=== PATIENT | female | born 1985 | race Caucasian/White ===

== ENCOUNTER 2023-02-24 17:42 | Outpatient (CLI) | payer BC, SELFPAY ==
[2023-02-24 17:46] LABS: Influenza A, PCR Not Detected (NotDetected); Influenza B, PCR Not Detected (NotDetected)
[2023-02-24 18:33] LABS: Basophils # 0.1 K/mm3 (0-0.2); Basophils % 0.7 % (0.1-2.0); Eosinophils # 0.4 K/mm3 (0.0-0.4); Eosinophils % 4.9 % (0.1-12.0); Hematocrit 41.5 % (37.0-47.0); Lymphocytes # 2.1 K/mm3 (0.7-4.5); Lymphocytes % 25.7 % (10-50); Mean Corpuscular HGB Conc 33.8 g/dL (31.8-35.4); Mean Corpuscular Hemoglobin 29.1 pg (27.0-31.2); Mean Platelet Volume 8.6 fl (7.4-10.4); Monocytes # 0.6 K/mm3 (0.1-1.0); Monocytes % 7.8 % (1.7-9.3); Neutrophils # 4.9 K/mm3 (1.8-7.8); Neutrophils % 60.8 % (37.0-80.0); Platelet Count 248 K/mm3 (142-424); Red Blood Count 4.83 M/mm3 (4.20-5.40); Red Cell Distribution Width 13.6 % (11.5-17.5)
[2023-02-24 18:37] LABS: Alanine Aminotransferase 28 U/L (12-78); Albumin Level 3.7 g/dl (3.5-5.0); Albumin/Globulin Ratio 1.2 (1.1-1.8); Alkaline Phosphatase 93 U/L (38-126); Anion Gap 7.6 mEq/L (5-15); Aspartate Amino Transferase 29 U/L (14-36); Bilirubin,Total 0.3 mg/dl (0.2-1.3); Blood Urea Nitrogen 11 mg/dl (7-17); Calcium 8.5 mg/dl (8.4-10.2); Carbon Dioxide 28 mmol/L (22.0-30.0); Chloride 105 mmol/L (98-107); Estimated Glomerular Filt Rate 111 ml/min (>60); GFR (African American) 135 ML/MIN (>60); Glucose 97 mg/dl (74-100); Potassium 3.6 mmoL/L (3.5-5.1); Sodium 137 mmol/L (136-145); Total Protein,Serum 6.7 g/dl (6.3-8.2)
[2023-02-24 19:17] LABS: Coronavirus 19, PCR Detected (NotDetected)
== END 2023-02-24 23:59 ==
LOC: LAB.DROPOF 17:43
PROVIDERS: PCP Nurse Practitioner; Visit Provider Nurse Practitioner
DX: J06.9 Acute upper respiratory infection, unspecified (principal); U07.1 COVID-19
CPT/HCPCS: 80053; 85025; 87636

== ENCOUNTER 2023-07-01 10:20 | Outpatient (CLI) | payer BC, SELFPAY ==
[2023-07-01 20:11] LABS: Creatinine,Urine Random 17 mg/dL (Not Estab.)
[2023-07-01 20:19] LABS: Microalbumin < 6.000 mg/L (0-16.7)
== END 2023-07-01 23:59 | disposition home or self-care (01) ==
LOC: LAB.DROPOF 07-03 10:22
PROVIDERS: PCP Nurse Practitioner; Visit Provider Nurse Practitioner
DX: I10 Essential (primary) hypertension (principal); E78.5 Hyperlipidemia, unspecified
CPT/HCPCS: 82043; 82570

== ENCOUNTER 2023-07-11 08:51 | Outpatient (CLI) | payer BC, SELFPAY ==
[2023-07-01 20:11] LABS: Creatinine,Urine Random 17 mg/dL (Not Estab.)
[2023-07-01 20:19] LABS: Microalbumin < 6.000 mg/L (0-16.7)
[2023-07-11 09:07] LABS: Basophils # 0.1 K/mm3 (0-0.2); Basophils % 0.8 % (0.1-2.0); Eosinophils # 0.2 K/mm3 (0.0-0.4); Eosinophils % 2.2 % (0.1-12.0); Hematocrit 43.1 % (37.0-47.0); Hemoglobin 13.9 g/dL (12.2-16.2); Lymphocytes # 2.1 K/mm3 (0.7-4.5); Lymphocytes % 21.5 % (10-50); Mean Corpuscular HGB Conc 32.1 g/dL (31.8-35.4); Mean Corpuscular Hemoglobin 28.4 pg (27.0-31.2); Mean Corpuscular Volume 88.6 fl (81-99); Mean Platelet Volume 8.2 fl (7.4-10.4); Monocytes # 0.4 K/mm3 (0.1-1.0); Monocytes % 4.6 % (1.7-9.3); Neutrophils # 6.8 K/mm3 (1.8-7.8); Neutrophils % 70.8 % (37.0-80.0); Platelet Count 267 K/mm3 (142-424); Red Blood Count 4.87 M/mm3 (4.20-5.40); White Blood Count 9.5 K/mm3 (4.8-10.8)
[2023-07-11 09:40] LABS: Hemoglobin A1C 5.5 % (4.0-6.0)
[2023-07-11 10:04] LABS: Alanine Aminotransferase 26 U/L (12-78); Albumin Level 3.9 g/dl (3.5-5.0); Albumin/Globulin Ratio 1.3 (1.1-1.8); Alkaline Phosphatase 91 U/L (38-126); Aspartate Amino Transferase 25 U/L (14-36); Bilirubin,Total 0.8 mg/dl (0.2-1.3); Blood Urea Nitrogen 16 mg/dl (7-17); Calcium 9.2 mg/dl (8.4-10.2); Carbon Dioxide 28 mmol/L (22.0-30.0); Chloride 102 mmol/L (98-107); Chol/HDL Ratio 4.2 (1-3.5); Cholesterol 228 mg/dl (140-200); Estimated Glomerular Filt Rate 93 ml/min (>60); GFR (African American) 112 ML/MIN (>60); Globulin 2.9 g/dL (1.3-3.2); Glucose 94 mg/dl (74-100); HDL Cholesterol 54 mg/dl (40-60); Sodium 138 mmol/L (136-145); Total Protein,Serum 6.8 g/dl (6.3-8.2); Triglycerides 172 mg/dl (30-150); VLDL Cholesterol 34 mg/dL (0-40)
[2023-07-11 10:16] LABS: Direct LDL Cholesterol 131.06 mg/dL (100-129)
[2023-07-11 10:23] LABS: 25-OH Vitamin D, Total 27.8 ng/mL (30-100)
[2023-07-11 10:35] LABS: Thyroid Stimulating Hormone 3.82 uIU/mL (0.465-4.68)
[2023-07-11 10:54] LABS: Vitamin B12 510 pg/mL (239-931)
== END 2023-07-11 23:59 | disposition home or self-care (01) ==
LOC: LAB 08:53
PROVIDERS: PCP Nurse Practitioner; Visit Provider Nurse Practitioner
DX: I10 Essential (primary) hypertension (principal); E78.5 Hyperlipidemia, unspecified; E55.9 Vitamin D deficiency, unspecified
CPT/HCPCS: 36415; 80050; 80053; 80061; 82043; 82306; 82570; 82607; 83036; 84443; 85025

== ENCOUNTER 2023-07-24 07:42 | Outpatient (CLI) | payer BC, SELFPAY ==
--- NOTE | 2023-07-24 07:43 | MM_ITS ---
PROCEDURE INFORMATION: Exam: Bilateral Screening 3D Mammography Exam date and time: 07/24/2023 7:50 AM Age: 38 years old Clinical indication: Screening examination TECHNIQUE: Imaging protocol: Bilateral Screening tomosynthesis and 2D mammography including computer-aided detection (CAD) when performed. COMPARISON: No relevant prior studies available. FINDINGS: MAMMOGRAPHY: Breast composition: There are scattered areas of fibroglandular density. Mass: Questionable 0.5 cm mass in the anterior left upper inner quadrant Architectural distortion: None. Calcifications: No suspicious calcifications. Asymmetric density: None. Skin thickening: None. Axillary adenopathy: None. IMPRESSION: Patient to be recalled for spot compression views of the left breast in the CC and MLO projections, a full 90 degree lateral view, and possible left breast ultrasound for further evaluation of a left breast mass. ASSESSMENT: BI-RADS Category 0: Incomplete- Need Additional Imaging Evaluation and/or Prior Mammograms for Comparison.
== END 2023-07-24 23:59 | disposition home or self-care (01) ==
LOC: RAD 07:43
PROVIDERS: PCP Nurse Practitioner; Visit Provider Nurse Practitioner
DX: Z12.31 Encounter for screening mammogram for malignant neoplasm of breast (principal)
CPT/HCPCS: 77063; 77067

== ENCOUNTER 2023-08-28 09:43 | Outpatient (CLI) | payer BC, SELFPAY ==
--- NOTE | 2023-08-28 09:44 | US_ITS ---
PROCEDURE INFORMATION: Exam: US Left Breast, Complete MG Left Diagnostic Breast Tomosynthesis Exam date and time: 08/28/2023 9:32 AM Age: 38 years old Clinical indication: Patient recalled on the basis of a screening mammogram for further evaluation; Left breast; mass TECHNIQUE: Imaging protocol: Complete ultrasound of all four quadrants of the left breast and the retroareolar regions, including ultrasound of the axilla when performed. Left Diagnostic tomosynthesis and 2D mammography including computer-aided detection (CAD) when performed. Unilateral or bilateral exam. COMPARISON: MG MM DIG SCREENING MAMM BI W/CAD 07/24/2023 7:50 AM FINDINGS: MAMMOGRAPHY: Breast composition: There are scattered areas of fibroglandular density (based on the most recent screening mammogram report). Breast mammogram findings: Digital diagnostic spot compression views of the left breast and 90 degree lateral view of the left breast demonstrate a persistent 0.5 cm ovoid mass ULTRASOUND: Breast ultrasound findings: Sonographic images of the left 11 o'clock axis 3 cm from the nipple demonstrates a 0.7 cm cyst corresponding to the mass on mammography. No other solid or cystic masses are noted the remainder of the left breast. No architectural distortion or acoustic shadowing there is no axillary adenopathy. IMPRESSION: Mass on screening mammography corresponds to underlying cystic change sonographically. There is no mammographic evidence of malignancy.Annual bilateral mammographic screening is recommended unless otherwise clinically indicated. ASSESSMENT: BI-RADS Category 2: Benign.
== END 2023-08-28 23:59 | disposition home or self-care (01) ==
LOC: RAD 09:44
PROVIDERS: PCP Nurse Practitioner; Visit Provider Nurse Practitioner
DX: D48.62 Neoplasm of uncertain behavior of left breast (principal)
CPT/HCPCS: 76641; 77061; 77065; G0279

== ENCOUNTER 2023-11-03 14:34 | Outpatient (CLI) | payer BC, SELFPAY | END 2023-11-03 23:59 | disposition home or self-care (01) | LOC: LAB.DROPOF 11-04 12:03 | PROVIDERS: PCP Family Medicine; Visit Provider Family Medicine | DX: J02.9 Acute pharyngitis, unspecified (principal); R05.9 Cough, unspecified | CPT/HCPCS: 87635 ==

== ENCOUNTER 2024-04-27 11:26 | Outpatient (CLI) | payer BC, SELFPAY ==
[2024-04-27 19:00] LABS: Creatinine,Urine Random 16 mg/dL (Not Estab.)
[2024-04-27 19:01] LABS: Microalbumin < 6.000 mg/L (0-16.7)
== END 2024-04-27 23:59 | disposition home or self-care (01) ==
LOC: LAB.DROPOF 04-28 11:27
PROVIDERS: PCP Nurse Practitioner; Visit Provider Nurse Practitioner
DX: I10 Essential (primary) hypertension (principal); E78.5 Hyperlipidemia, unspecified; E66.01 Morbid (severe) obesity due to excess calories; Z68.41 Body mass index [BMI] 40.0-44.9, adult
CPT/HCPCS: 82043; 82570

== ENCOUNTER 2024-04-30 09:47 | Outpatient (CLI) | payer BC, SELFPAY ==
[2024-04-30 10:26] LABS: Basophils % 0.5 % (0.1-2.0); Eosinophils # 0.2 K/mm3 (0.0-0.4); Eosinophils % 1.8 % (0.1-12.0); Hemoglobin 13.2 g/dL (12.2-16.2); Lymphocytes # 2.1 K/mm3 (0.7-4.5); Lymphocytes % 23.7 % (10-50); Mean Corpuscular HGB Conc 32.2 g/dL (31.8-35.4); Mean Corpuscular Hemoglobin 28.2 pg (27.0-31.2); Mean Corpuscular Volume 87.6 fl (81-99); Mean Platelet Volume 10.3 fl (7.4-10.4); Monocytes # 0.6 K/mm3 (0.1-1.0); Monocytes % 6.5 % (1.7-9.3); Neutrophils # 5.9 K/mm3 (1.8-7.8); Neutrophils % 67.3 % (37.0-80.0); Platelet Count 283 K/mm3 (142-424); Red Blood Count 4.68 M/mm3 (4.20-5.40); Red Cell Distribution Width 12.7 % (11.5-17.5); White Blood Count 8.7 K/mm3 (4.8-10.8)
[2024-04-30 11:11] LABS: Alanine Aminotransferase 19 U/L (12-78); Albumin Level 4.1 g/dl (3.5-5.0); Albumin/Globulin Ratio 1.8 (1.1-1.8); Alkaline Phosphatase 68 U/L (38-126); Anion Gap 9.5 mEq/L (5-15); Aspartate Amino Transferase 23 U/L (14-36); Bilirubin,Total 0.6 mg/dl (0.2-1.3); Blood Urea Nitrogen 18 mg/dl (7-17); Carbon Dioxide 29 mmol/L (22.0-30.0); Chloride 104 mmol/L (98-107); Cholesterol 208 mg/dl (140-200); Estimated Glomerular Filt Rate 110 ml/min (>60); GFR (African American) 133 ML/MIN (>60); Globulin 2.3 g/dL (1.3-3.2); Glucose 88 mg/dl (74-100); HDL Cholesterol 42 mg/dl (40-60); Potassium 4.5 mmoL/L (3.5-5.1); Sodium 138 mmol/L (136-145); Total Protein,Serum 6.4 g/dl (6.3-8.2); Triglycerides 79 mg/dl (30-150); VLDL Cholesterol 16 mg/dL (0-40)
[2024-04-30 11:22] LABS: Direct LDL Cholesterol 118.96 mg/dL (100-129)
[2024-04-30 11:27] LABS: 25-OH Vitamin D, Total 81.6 ng/mL (30-100)
[2024-04-30 11:42] LABS: Thyroid Stimulating Hormone 2.15 uIU/mL (0.465-4.68)
[2024-04-30 12:01] LABS: Vitamin B12 725 pg/mL (239-931)
[2024-04-30 13:33] LABS: Hemoglobin A1C 5.2 % (4.0-6.0)
== END 2024-04-30 23:59 | disposition home or self-care (01) ==
LOC: LAB 09:48
PROVIDERS: PCP Nurse Practitioner; Visit Provider Nurse Practitioner
DX: I10 Essential (primary) hypertension (principal); E78.5 Hyperlipidemia, unspecified; E66.01 Morbid (severe) obesity due to excess calories; Z68.41 Body mass index [BMI] 40.0-44.9, adult
CPT/HCPCS: 36415; 80053; 80061; 82306; 82607; 83036; 84443; 85025

== ENCOUNTER 2024-05-27 07:46 | Outpatient (CLI) | payer BC, SELFPAY ==
[2024-05-28 04:26] LABS: Estradiol 48.4 pg/mL (.); FSH 6.2 mIU/mL (.); LH 3.6 mIU/mL (.); Progesterone 0.2 ng/mL (.)
== END 2024-05-27 23:59 | disposition home or self-care (01) ==
LOC: LAB 07:47
PROVIDERS: PCP Nurse Practitioner; Visit Provider Obstetrics & Gynecology
DX: R68.82 Decreased libido (principal)
CPT/HCPCS: 36415; 82670; 83001; 83002; 84144

== ENCOUNTER 2024-09-09 08:15 | Outpatient (CLI) | payer BC, SELFPAY ==
--- OUTSIDE RECORDS SUMMARY | 2023-06-20 08:55 | XMS_ITS | Encounter Summary ---
Author Organization [place] [address] Care Team Providers Care Data Abstractor Name Role Phone Mercedes Garcia DO Primary Care Provider [phone] Encounter Details Date Type Department Care Team (Latest Contact Info) Description 06/20/2023 8:55 AM EDT Hospital Encounter [facility] [address] [place] [address] Left without seen Social History Tobacco Use Types Packs/Day Years Used Date Smoking Tobacco: Former Cigarettes 0.3 20 1 03/30/1994 - 01/27/2015 Smokeless Tobacco: Never Alcohol Use Standard Drinks/Week Comments Yes 0 (1 standard drink = 0.6 oz pur e alcohol) rare; 2x/yr PHQ-2 Answer Date Recorded PHQ-2 Total Score 0 06/10/2022 Sexually Active Control Partners Comments Yes Condom, OCP Male Comments No Sex and Gender Information Value Date Recorded Sex Assigned at Not on file Legal Sex Female 7:23 PM EDT Gender Identity Not on file Sexual Orientation Not on file documented as of this encounter Functional Status * Is the person deaf or does he/she have serious difficulty hearing? Answer Date of Assessment Author No 06/10/2022 7:33 AM EDT Anuj Ayala MA * Is the person blind or does he/she have serious difficulty seeing even when wearing glasses? Answer Date of Assessment Author No 06/10/2022 7:33 AM EDT Anuj Ayala MA * Does this person have serious difficulty walking or climbing stairs? Answer Date of Assessment Author No 06/10/2022 7:33 AM EDT Anuj Ayala MA * Does this person have difficulty dressing or bathing? Answer Date of Assessment Author No 06/10/2022 7:33 AM EDT Anuj Ayala MA * Because of a physical, mental or emotional condition, does this person have difficulty doing errands alone such as visiting a doctor's office or shopping? Answer Date of Assessment Author No 06/10/2022 7:33 AM EDT Anuj Ayala MA documented as of this encounter Mental Status * Because of a physical, mental or emotional condition, does this person have serious difficulty concentrating, remembering or making decisions? Answer Entry Date Author No 06/10/2022 7:33 AM EDT Anuj Ayala MA documented in this encounter Plan of Treatment Not on file documented as of this encounter Goals Goal Patient Goal Type Associated Problems Recent Progress Patient-Stated? Author Blood Pressure < 140/90 Blood Pressure 128/82(2022 7:33 AM EDT) No Afshan Carrillo RMA Eat better, exercise, reach an ideal body weight General No Karen Morelos LPN Stay Tobacco Free Lifestyle No Karen Morelos LPN documented as of this encounter Visit Diagnoses Not on filedocumented in this encounter Care Teams Data Abstractor Relationship Specialty Start Date End Date Mercedes Garcia DO [address] [place] [address] PCP - General Family Medicine 10/28/22 documented as of this encounter
--- OUTSIDE RECORDS SUMMARY | 2024-09-09 08:18 | XMS_ITS | Clinical Summary ---
Author Organization [facility] Address [address] [place] [address] Care Team Providers Care Induction Machine Setter Name Role Phone Unavailable Primary Care Provider Unavailabl e Allergies Active Allergy Reactions Criticality Noted Date Comments Lisinopril Other (See Comments) 02/06/2021 Hair loss Nickel 12/07/2009 Sulfa (Sulfonamide Antibiotics) 12/07/2009 Medications atorvastatin (LIPITOR) 80 mg Tablet Take 80 mg by mouth daily. 10/24/2022 Active fluticasone propionate (FLONASE) 50 mcg/actuation nasal spray [place] into nose daily as needed. Active hydroCHLOROthia zide (HYDRODIURIL) 25 mg tablet Take 25 mg by mouth daily. 10/24/2022 Active hyoscyamine (LEVSIN/SL) 0.125 mg SL tablet DISSOLVE ONE TABLET UNDER THE TONGUE EVERY 4 HOURS NEEDED FOR CRAMPING 06/10/2022 Active Levocetirizine (Xyzal) 5 mg Tablet Take 1 Tablet by mouth nightly. 05/31/2022 Active losartan (COZAAR) 25 mg Tablet Take 25 mg by mouth daily. 10/24/2022 Active Active Problems Problem Noted Date Diagnosed Date Irritable bowel syndrome with constipation 06/1011/14/2022 Overview (11/14/2022): Stable on prn hyoscyamine Obesity, Class III, BMI 40-49.9 (morbid obesity) ([facility]) 04/25/2016 11/14/2022 Essential hypertension 04/09/2016 Allergic rhinitis 12/11/2009 11/14/2022 Overview (11/14/2022): Prior allergy testing, + oak; no prior allergy shots Saw ENT/Dr Mckoy Mixed hyperlipidemia 12/11/2009 11/14/2022 Immunizations Immunization Administration Dates Next Due Tdap 02/06/2021,12/11/2009 Social History Tobacco Use Types Packs/Day Years Used Date Smoking Tobacco: Never Assessed Comments Unknown Sex and Gender Information Value Date Recorded Sex Assigned at Not on file Legal Sex Female 8:03 PM EDT Gender Identity Not on file Sexual Orientation Not on file Plan of Treatment Not on file Insurance
--- OUTSIDE RECORDS SUMMARY | 2024-09-09 08:18 | XMS_ITS | Clinical Summary ---
Author Organization [facility] [place] [facility] Address [address] [place] [address] Phone Care Team Providers Care Guidance Consultant Name Role Phone Mercedes Garcia Primary Care Provider [phone] Allergies Active Allergy Reactions Criticality Noted Date Comments Lisinopril Other (See Comments) 02/06/2021 Hair loss Nickel 12/07/2009 Sulfa (Sulfonamide Antibiotics) 12/07/2009 Medications fluticasone (FLONASE) 50 mcg/actuation Nasl [place], SuspensionIndicatio ns:Essential hypertension by Nasal route daily as needed for Allergies. Active budesonide (PULMICORT) 0.5 mg/2 mL Inhl Suspension for NebulizationIndicat ions:Sinus pressure Use in sinus rinse as directed 2 times a day. Dispense #60 2ml Vials 60 mL 3 Active levocetirizine (XYZAL) 5 mg Oral TabletIndications:D ysfunction of both eustachian tubes,Sinus pressure Take one pill nightly 30 Tablet 5 3 Active losartan (COZAAR) 25 mg Oral TabletIndications:E ssential hypertension Take 1 Tablet by mouth daily. 90 Tablet 3 3 Active hyoscyamine (LEVSIN/SL) 0.125 mg SL Tablet, SublingualIndicatio ns:Irritable bowel syndrome with constipation DISSOLVE ONE TABLET UNDER THE TONGUE EVERY 4 HOURS NEEDED FOR CRAMPING 60 Tablet 3 3 Active hydroCHLOROthiazide 25 mg Oral TabletIndications:E ssential hypertension Take 1 Tablet by mouth daily. 30 Tablet 3 4 Active atorvastatin (LIPITOR) 80 mg Oral TabletIndications:M ixed hyperlipidemia Take 1 Tablet by mouth daily. 30 Tablet 3 4 Active Active Problems Problem Noted Date Diagnosed Date Irritable bowel syndrome with constipation 06/10 Overview (06/10/2022): Stable on prn hyoscyamine Obesity, Class III, BMI 40-49.9 (morbid obesity) 04/25/2016 Essential hypertension 04/09/2016 Allergic rhinitis 12/11/2009 Overview (06/10/2022): Prior allergy testing, + oak; no prior allergy shots Saw ENT/Dr Mckoy Mixed hyperlipidemia 12/11/2009 Immunizations Immunization Administration Dates Next Due Tdap 02/06/2021,12/11/2009 Surgical History Surgery Date Site/Laterality Comments TONSILLECTOMY AND ADENOIDECTOMY 02/16/1993 - 02/15/1994 Medical History Medical History Date Comments Allergic rhinitis Hypertension Mixed hyperlipidemia Family History Medical History Relation Name Comments High Cholesterol Brother Joshua Substance Abuse Brother Joshua Other Maternal Grandmother bleedin g ulcer Lung Cancer Maternal Uncle 1 COPD Maternal Uncle 2 Depression Mother Gillian Heart Disease Mother Gillian High Cholesterol Mother Gillian Hypertension Mother Gillian Skin Cancer Mother Gillian Thyroid Disease Mother Gillian Diabetes Neg Hx Seizures Neg Hx Stroke Neg Hx Relation Name Status Comments Brothlenard Lewis Alive Father Other the sperm dono r Maternal Grandfather Maternal Grandmother Maternal Uncle 1 Maternal Uncle 2 Mother Gillian Alive Social History Tobacco Use Types Packs/Day Years Used Date Smoking Tobacco: Former Cigarettes 0.3 20 1 03/30/1994 - 01/27/2015 Smokeless Tobacco: Never Tobacco Cessation:Counseling Given: Not Answered Alcohol Use Standard Drinks/Week Comments Yes 0 [...] on file Sexual Orientation Not on file Obstetrics History Last Filed Vital Signs Vital Sign Reading Time Taken Comments Blood Pressure 128/82 06/10/2022 7:33 AM EDT Pulse 84 06/10/2022 7:33 AM EDT Temperature 36 C (96.8 F) 06/10/2022 7:33 AM EDT Respiratory Rate 17 07/11/2019 2:33 PM EDT Oxygen Saturation 99% 06/10/2022 7:33 AM EDT Inhaled Oxygen Concentration - - Weight 121.1 kg (267 lb) 06/10/2022 7:33 AM EDT Height 160 cm (5' 3 ) 06/10/2022 7:33 AM EDT Body Mass Index 47.3 06/10/2022 7:33 AM EDT Plan of Treatment Health Maintenance Due Date Last Done Comments Hepatitis B Vaccine (1 of 3 - 19+ 3-dose series) 2002 Breast Cancer Screening 2023 Annual Wellness Exam 06/11/2023 06/10/2022, 11/18/19 20 COVID-19 Vaccine ( season) 2023 Pap Smear 02/07/2024 02/06/2021, 01/17, 11/27/2014, Additional history exists Influenza Vaccine (#1) 2024 7 (Declined), 02/29/2016 (Declined), 11/27/2014 (Declined) Cervical Cancer Screening 02/06/2026 HPV/Pap Cotest 02/06/2026 02/06/2021 DTaP/TDaP/Td (3 - Td or Tdap) 02/06/2031 02/06/2021, 12/11/2009 Meningococcal B Vaccine Aged Out No l onger eligible based on patient's age to complete this topic Pneumococcal Vaccine 0-49 Aged Out No longer eligible based on patient's age to complete this topic Goals Goal Patient Goal Type Associated Problems Recent Progress Patient-Stated? Author Blood Pressure < 140/90 Blood Pressure 128/82(2022 7:33 AM EDT) No Afshan Carrillo, SYBIL Eat better, exercise, reach an ideal body weight General No Karen Morelos LPN Stay Tobacco Free Lifestyle No Karen Morelos LPN Procedures Procedure Name Priority Date/Time Associated Diagnosis Comments TIME STUDY OBSERVER CYTOLOGY REQUEST (PAP ONLY) Routine 02/06/2021 9:26 AM EST Routine general medical examination at a health care facility from Last 3 Months or Most Recently Relevant to Health Maintenance Results * TIME STUDY OBSERVER CYTOLOGY REQUEST (PAP ONLY) (02/06/2021 9:26 AM EST) CASE REPORT Gynecologic Cytology Report Case: [id number] Authorizing Provider: Che Cee MD Collected: 02/06/2021925 Ordering Location: [facility] Received: 02/06/2021925 First Screen: Mandy Pink CT Specimen: LIQUID-BASED PAP - CERVICAL/ENDOCERV ICAL, Cervix, Endocervical 02/08/2021 9:58 AM EST [facility] P[facility] FINAL DIAGNOSIS Negative for intraepithelial lesion or malignancy 02/08/2021 9:58 AM EST [facility] at 0958 EST MICROSCOPIC DESCRIPTION Microscopic examination is performed and the findings corroborate the diagnosis. 02/08/2021 9:58 AM EST [facility] PAP SMEAR ADEQUACY Satisfactory for evaluation 02/08/2021 9:58 AM EST [facility] ENDOCERVICAL T-ZONE Transformation zone absent. 02/08/2021 9:58 AM EST [facility] EMBEDDED IMAGES 9:58 AM EST [facility] PAP DISCLAIMER The Pap Smear is a screening test that aids in the detection of cervical cancer and cancer precursors. Both false positive and false negative results can occur. The test should be used at regular intervals, and positive results should be confirmed before definitive therapy. Processed using the [employer] Automated cytology screening device (streamit). 02/08/2021 9:58 AM EST [facility] Thin Prep ENDOCERVICAL STRUCTURE / Unknown 02/06/2021 9:26 AM EST 02/06/2021 9:26 AM EST us Che Cee MD CYTOLOGY ORDERABLES Final Resul t HILARY GILLIAM [place] [phone] from Last 3 Months or Most Recently Relevant to Health Maintenance Insurance [employer] [id number] [employer] PPO Care Teams Guidance Consultant Relationship Specialty Start Date End Date Mercedes Garcia DO [address] [place] [address] PCP - General Family Medicine 10/28/22
--- NOTE | 2024-09-09 08:30 | MM_ITS ---
PROCEDURE INFORMATION: Exam: MG Bilateral Screening 3D Mammography Exam date and time: 09/09/2024 8:26 AM Age: 39 years old Clinical indication: Screening examination TECHNIQUE: Imaging protocol: Bilateral Screening tomosynthesis and 2D mammography including computer-aided detection (CAD) when performed. COMPARISON: 1. MG MM DIG MAMM DX UNILAT LT CAD 08/28/2023 9:32 AM 2. MG MM DIG SCREENING MAMM BI W/CAD 07/24/2023 7:50 AM FINDINGS: MAMMOGRAPHY: Breast composition: There are scattered areas of fibroglandular density. Mass: No new or suspicious masses Architectural distortion: None. Calcifications: No suspicious calcifications. Asymmetric density: None. Skin thickening: None. Axillary adenopathy: None. IMPRESSION: No mammographic evidence of malignancy. Annual screening is recommended unless otherwise clinically indicated. ASSESSMENT: BI-RADS Category 1: Negative.
== END 2024-09-09 23:59 | disposition home or self-care (01) ==
LOC: RAD 08:15
PROVIDERS: PCP Nurse Practitioner; Visit Provider Nurse Practitioner
DX: Z12.31 Encounter for screening mammogram for malignant neoplasm of breast (principal); R92.323 Mammographic fibroglandular density, bilateral breasts
CPT/HCPCS: 77063; 77067